=== PATIENT | female | born 2000 | race Hispanic/Latino ===

== ENCOUNTER 2022-09-21 20:06 | Emergency (ER) | payer SELFPAY ==
[2022-09-21] VITALS (15 sets, daily range): BP systolic 115–142; BP diastolic 61–90
[~2022-09-21] VITALS: Ht 152.4 cm; Wt 63.0 kg
[2022-09-21] MEDS ORDERED: PREDNISONE20 MG PO (21:32)
[2022-09-21] MEDS ORDERED: KEFLEX500 MG PO (21:32)
== END 2022-09-21 23:50 | disposition home or self-care (01) | DRG 556 ==
LOC: ED 20:06
DX: M25.541 Pain in joints of right hand (principal)